=== PATIENT | female | born 1955 | race Caucasian/White ===

== ENCOUNTER → 2024-01-31 12:47 | Outpatient (REF) | payer MEDICARE, BC, SELFPAY | LOC: RAD 12:47 | PROVIDERS: ATTENDING PHYSICIAN Specialist; FAMILY PHYSICIAN Family Medicine | DX: N20.0 Calculus of kidney (principal) | CPT/HCPCS: 74018 ==

== ENCOUNTER 2024-09-30 08:10 | Outpatient (RCR) | payer MEDICARE, BC, SELFPAY | END 2024-09-30 23:59 | disposition home or self-care (01) | LOC: RPT 08:10 | PROVIDERS: ATTENDING PHYSICIAN Obstetrics & Gynecology; FAMILY PHYSICIAN Family Medicine | DX: N81.4 Uterovaginal prolapse, unspecified (principal); M62.89 Other specified disorders of muscle; Z73.6 Limitation of activities due to disability | CPT/HCPCS: 97163; 97530 ==

== ENCOUNTER 2024-10-22 16:13 | Outpatient (RCR) | payer MEDICARE, BC, SELFPAY | END 2024-10-22 23:59 | disposition home or self-care (01) | LOC: RPT 16:13 | PROVIDERS: ATTENDING PHYSICIAN Obstetrics & Gynecology; FAMILY PHYSICIAN Family Medicine | DX: N81.4 Uterovaginal prolapse, unspecified (principal); M62.89 Other specified disorders of muscle; Z73.6 Limitation of activities due to disability | CPT/HCPCS: 97014; 97110; 97112; 97140; 97530 ==

== ENCOUNTER 2024-12-10 10:10 | Outpatient (RCR) | payer MEDICARE, BC, SELFPAY | END 2024-12-10 23:59 | disposition home or self-care (01) | LOC: RPT 10:10 | PROVIDERS: ATTENDING PHYSICIAN Obstetrics & Gynecology; FAMILY PHYSICIAN Family Medicine | DX: N81.4 Uterovaginal prolapse, unspecified (principal); M62.89 Other specified disorders of muscle; Z73.6 Limitation of activities due to disability; N81.11 Cystocele, midline | CPT/HCPCS: 97014; 97110; 97112; 97530 ==

== ENCOUNTER 2025-01-15 09:16 | Outpatient (RCR) | payer MEDICARE, BC, SELFPAY | END 2025-01-15 23:59 | disposition home or self-care (01) | LOC: RPT 09:16 | PROVIDERS: ATTENDING PHYSICIAN Obstetrics & Gynecology; FAMILY PHYSICIAN Family Medicine | DX: N81.4 Uterovaginal prolapse, unspecified (principal); M62.89 Other specified disorders of muscle; Z73.6 Limitation of activities due to disability; N81.11 Cystocele, midline | CPT/HCPCS: 97014; 97110; 97112; 97140; 97530 ==

== ENCOUNTER 2025-02-04 08:31 | Outpatient (RCR) | payer MEDICARE, BC, SELFPAY | END 2025-02-04 23:59 | disposition home or self-care (01) | LOC: RPT 08:31 | PROVIDERS: ATTENDING PHYSICIAN Obstetrics & Gynecology; FAMILY PHYSICIAN Family Medicine | DX: N81.4 Uterovaginal prolapse, unspecified (principal); M62.89 Other specified disorders of muscle; Z73.6 Limitation of activities due to disability; N81.11 Cystocele, midline | CPT/HCPCS: 97110; 97112; 97530 ==

== ENCOUNTER 2025-02-25 06:45 | Outpatient (RCR) | payer MEDICARE, BC, SELFPAY | END 2025-02-25 23:59 | disposition home or self-care (01) | LOC: RPT 06:45 | PROVIDERS: ATTENDING PHYSICIAN Obstetrics & Gynecology; FAMILY PHYSICIAN Family Medicine | DX: N81.4 Uterovaginal prolapse, unspecified (principal); M62.89 Other specified disorders of muscle; Z73.6 Limitation of activities due to disability; N81.11 Cystocele, midline | CPT/HCPCS: 97110; 97530 ==